=== PATIENT | male | born 1935 | race Caucasian/White ===

== ENCOUNTER 2017-07-06 10:29 | Emergency (ER) | payer MEDICARE, OTHER ==
[~2017-07-06] VITALS: Ht 172.7 cm; Wt 77.1 kg
[~2017-07-06 10:29] MED LIST: ASPIR 8181 MG PO; ATENOLOL25 MG PO; CLOPIDOGREL75 MG PO; CRESTOR10 MG PO; D3 DOTS2000 UNIT PO; ENDUR-ACIN500 MG PO; GLUCOPHAGE500 MG PO; LANSOPRAZOL-AM1 EACH PO; LANTUS SOL100 UNIT/1 SUB-Q; LISINOPRIL2.5 MG PO; NIACIN ER500 MG; NIACIN1000 MG PO; SYNTHROID112 MCG PO
== END 2017-07-06 10:51 | disposition home or self-care (01) ==
LOC: ED 10:29
DX: S61.211A Laceration without foreign body of left index finger without damage to nail, initial encounter (principal); W26.8XXA Contact with other sharp object(s), not elsewhere classified, initial encounter

== ENCOUNTER 2018-01-18 16:45 | Emergency (ER) | payer MEDICARE, OTHER ==
[~2018-01-18] VITALS: Ht 172.7 cm; Wt 76.2 kg
[2018-01-18] MEDS ORDERED: VITAMIN C500 M5 PO (16:57)
[2018-01-18] MEDS ORDERED: LANSOPRAZOLE15 MG PO (16:58)
[2018-01-18] MEDS ORDERED: LEVOTHYROXINE125 MCG PO (16:59)
[2018-01-18] MEDS ORDERED: NORCO 5-325 TA1 EACH PO (17:00)
== END 2018-01-18 17:45 | disposition home or self-care (01) ==
LOC: ED 16:45
DX: M96.840 Postprocedural hematoma of a musculoskeletal structure following a musculoskeletal system procedure (principal); I10 Essential (primary) hypertension; E11.9 Type 2 diabetes mellitus without complications; I25.2 Old myocardial infarction; Z79.899 Other long term (current) drug therapy; Z79.4 Long term (current) use of insulin; Z79.82 Long term (current) use of aspirin
CPT/HCPCS: 93971; 99284

== ENCOUNTER 2019-02-04 20:50 | Emergency (ER) | payer MEDICARE, OTHER ==
[~2019-02-04] VITALS: Ht 172.7 cm; Wt 74.8 kg
[~2019-02-04 20:50] MED LIST changes: +LANSOPRAZOLE15 MG PO; +LEVOTHYROXINE125 MCG PO; +NORCO 5-325 TA1 EACH PO; +VITAMIN C500 M5 PO
[2019-02-04] MEDS ORDERED: SYNTHROID125 MCG PO (21:14)
[2019-02-04] MEDS ORDERED: CELEXA10 MG PO (21:17)
== END 2019-02-05 00:13 | disposition home or self-care (01) ==
LOC: ED 20:50
PROC: 4A0D7LZ Measurement of Urinary Volume, Via Natural or Artificial Opening (ICD-10-PCS; principal; 2019-02-04)
PROC: 0T2BX0Z Change Drainage Device in Bladder, External Approach (ICD-10-PCS; 2019-02-04)
DX: R33.9 Retention of urine, unspecified (principal); R31.0 Gross hematuria; I10 Essential (primary) hypertension; E11.9 Type 2 diabetes mellitus without complications; I25.2 Old myocardial infarction; Z85.850 Personal history of malignant neoplasm of thyroid; Z87.891 Personal history of nicotine dependence; Z95.5 Presence of coronary angioplasty implant and graft; Z88.8 Allergy status to other drugs, medicaments and biological substances; Z79.4 Long term (current) use of insulin; Z79.82 Long term (current) use of aspirin; Z79.899 Other long term (current) drug therapy
CPT/HCPCS: 36415; 51702; 51798; 80053; 81001; 85025; 85610; 85730; 99283-25

== ENCOUNTER 2019-02-07 08:52 | Emergency (ER) | payer MEDICARE, OTHER ==
[~2019-02-07] VITALS: Ht 172.7 cm; Wt 74.8 kg
[~2019-02-07 08:52] MED LIST changes: +CELEXA10 MG PO; +SYNTHROID125 MCG PO
--- OUTSIDE RECORDS SUMMARY | 2019-02-07 08:54 | XMS ---
PreManage Notification: [facility] Security Inside Steward/Stewardess Events No recent Security Events currently on file CRITERIA MET - [facility] - 2 Visits in 30 Days CARE PROVIDERS [facility] Current PHONE: [phone] [facility] Current PHONE: [phone] Tran has no Care Guidelines for this patient. Cassie VISIT COUNT (12 MO.) 2 [facility] TOTAL 2 NOTE: Visits indicate total known visits. ED/UCC VISIT TRACKING (12 MO.) 02/07/2019 08:52 [facility] [place] TYPE: Emergency COMPLAINT: - CATHETER REMOVAL 02/04/2019 20:50 [facility] [place] TYPE: Emergency COMPLAINT: - BLOOD IN URINE DIAGNOSES: - Personal history of nicotine dependence - Gross hematuria - Other prison (current) drug therapy - Essential (primary) hypertension - FDC (current) use of insulin - bed bug exterminator (current) use of aspirin - Type 2 diabetes mellitus without complications - Retention of urine, unspecified - Personal history of malignant neoplasm of thyroid - Old myocardial infarction - Hematuria, unspecified - Presence of coronary angioplasty implant and graft - Allergy status to other drugs, medicaments and biological substances status INPATIENT VISIT TRACKING (12 MO.) No inpatient visits to display in this time frame [email or web address]
== END 2019-02-07 09:24 | disposition home or self-care (01) ==
LOC: ED 08:52
DX: N13.9 Obstructive and reflux uropathy, unspecified (principal); I10 Essential (primary) hypertension; E11.9 Type 2 diabetes mellitus without complications; I25.2 Old myocardial infarction; Z85.850 Personal history of malignant neoplasm of thyroid; Z87.891 Personal history of nicotine dependence; Z95.5 Presence of coronary angioplasty implant and graft; Z88.8 Allergy status to other drugs, medicaments and biological substances; Z79.4 Long term (current) use of insulin; Z79.82 Long term (current) use of aspirin; Z79.899 Other long term (current) drug therapy
CPT/HCPCS: 99283

== ENCOUNTER 2022-05-22 19:10 | Inpatient (IN) | payer MEDICARE ==
[~2022-05-22] VITALS: Ht 172.7 cm; Wt 72.0 kg
[~2022-05-22 19:10] MED LIST changes: -ASPIR 8181 MG PO; -CELEXA10 MG PO; +CITALOPRAM HBR10 MG PO; -LEVOTHYROXINE125 MCG PO; +LO-DOSE ASPIRIN81 MG PO; +SYNTHROID137 MCG PO
[2022-05-22] MEDS ORDERED: FINASTERIDE5 MG PO (19:36)
[2022-05-22] MEDS ORDERED: LISINOPRIL10 MG PO (19:36)
[2022-05-23] MEDS ORDERED: METFORMIN HCL500 M1 PO (08:18)
[2022-05-25] MEDS ORDERED: LEVOFLOXACIN750 MG PO (11:46)
[2022-05-25] MEDS ORDERED: PROBIOTIC1 EAC3 PO (11:47)
[2022-05-25] MEDS ORDERED: ATENOLOL25 MG PO (11:48)
[2022-05-25] MEDS ORDERED: LANTUS SOL100 UNIT/1 SUB-Q (11:49)
[2022-05-25] MEDS ORDERED: AMLODIPINE BESYL5 MG PO (11:49)
== END 2022-05-25 13:00 | disposition home or self-care (01) | DRG 872 ==
LOC: ED 19:10 → CCU 05-23 00:14 → MS 05-23 18:50
PROVIDERS: ADMIT Internal Medicine; ATTEND Internal Medicine
DX: A41.51 Sepsis due to Escherichia coli [E. coli] (principal); K83.09 Other cholangitis; R65.20 Severe sepsis without septic shock; I25.10 Atherosclerotic heart disease of native coronary artery without angina pectoris; E11.9 Type 2 diabetes mellitus without complications; I10 Essential (primary) hypertension; K21.9 Gastro-esophageal reflux disease without esophagitis; N40.0 Benign prostatic hyperplasia without lower urinary tract symptoms; E03.9 Hypothyroidism, unspecified; E78.00 Pure hypercholesterolemia, unspecified; H54.7 Unspecified visual loss; Z20.822 Contact with and (suspected) exposure to COVID-19; E83.42 Hypomagnesemia; E80.6 Other disorders of bilirubin metabolism; F03.90 Unspecified dementia, unspecified severity, without behavioral disturbance, psychotic disturbance, mood disturbance, and anxiety; R74.01 Elevation of levels of liver transaminase levels; Z85.850 Personal history of malignant neoplasm of thyroid; Z86.73 Personal history of transient ischemic attack (TIA), and cerebral infarction without residual deficits; I25.2 Old myocardial infarction; Z87.891 Personal history of nicotine dependence; Z95.5 Presence of coronary angioplasty implant and graft; Z92.3 Personal history of irradiation; Z88.8 Allergy status to other drugs, medicaments and biological substances; Z79.811 Long term (current) use of aromatase inhibitors; Z79.4 Long term (current) use of insulin; Z79.899 Other long term (current) drug therapy; Z79.84 Long term (current) use of oral hypoglycemic drugs; Z79.82 Long term (current) use of aspirin
CPT/HCPCS: 36415; 71045; 74177; 76705; 80053; 80074; 81001; 82803; 83036; 83605; 83690; 83735; 83880; 85025; 85610; 87040; 87186; 87502; 96375; 99285-25; A9270; J1650; J1815; J2405; J2543; J3475; J7030; J7121; Q9967; U0003